=== PATIENT | female | born 1940 | race Caucasian/White ===

== ENCOUNTER 2018-02-27 10:18 | Day surgery (SDC) | payer MEDICARE ==
[~2018-02-27 10:18] MED LIST: LIDOCAINE 1% MDV 20ML VIAL SQ
[2018-02-27] MEDS: LR 1,000 ML IV (10:30)
[2018-02-27] MEDS ORDERED: dexameTHASONE 20 MG/5 ML VIAL (J1100) IV (10:30)
[2018-02-27] MEDS ORDERED: PROPOFOL 200 MG/20 ML VIAL As Ordered (12:25)
[2018-02-27] MEDS ORDERED: LIDOCAINE 2% INJ 100 MG/5 ML SDV (FOR ANES.) As Ordered (12:25)
[2018-02-27] MEDS ORDERED: ROCURONIUM BROMIDE 50 MG/5 ML VIAL As Ordered (12:25)
[2018-02-27] MEDS ORDERED: MIDAZOLAM INJ 2 MG/2 ML VIAL (J2250) As Ordered (12:26)
[2018-02-27] MEDS ORDERED: fentaNYL 250 MCG/5 ML INJECTION (J3010) As Ordered (12:26)
[2018-02-27] MEDS ORDERED: GLYCOPYRROLATE INJ 0.2 MG/ML 2 ML VIAL As Ordered (13:40)
[2018-02-27] MEDS ORDERED: ONDANSETRON 4MG/2ML VIAL (J2405) As Ordered (13:40)
[2018-02-27] MEDS ORDERED: NEOSTIGMINE 10 MG/10 ML VIAL (J2710) As Ordered (13:40)
[2018-02-27] MEDS ORDERED: KETOROLAC 60 MG/2 ML VIAL (J1885) As Ordered (13:40)
[2018-02-27] MEDS: EPINEPHrine 1MG/ML INJ 30ML MD-VIAL As Ordered (13:40)
[2018-02-27] MEDS ORDERED: dexameTHASONE 4 MG/ML 1ML VIAL (J1100) As Ordered ×2 (13:40)
[2018-02-27] MEDS: LIDOCAINE W/EPINEPHRINE 1% 20ML VIAL As Ordered (13:41)
[2018-02-27] MEDS: SODIUM CHLORIDE 0.9% NASAL GEL 15GM (AYR) As Ordered ×3 (13:41→13:44)
[2018-02-27] MEDS: METHYLENE BLUE 0.5% (5MG/ML) 10 ML AMP (PROVAYBLUE)(Q9968 PER 1MG) As Ordered (13:42)
[2018-02-27] MEDS ORDERED: LR 1,000 ML IV ×2 (14:45→15:00)
[2018-02-27] MEDS ORDERED: MEPERIDINE INJ 25 MG/ML VIAL (J2175) IV (15:00)
[2018-02-27] MEDS ORDERED: fentaNYL 100 MCG/2 ML INJECTION (J3010) IV (15:00)
[2018-02-27] MEDS ORDERED: ONDANSETRON 4MG/2ML VIAL (J2405) IV (15:00)
== END 2018-02-27 16:15 | disposition home or self-care (01) ==
LOC: M SDC 16:15
DX: J34.2 Deviated nasal septum (principal); J34.3 Hypertrophy of nasal turbinates; I10 Essential (primary) hypertension; E78.5 Hyperlipidemia, unspecified; R06.02 Shortness of breath; G35 Multiple sclerosis; Z87.891 Personal history of nicotine dependence; Z79.899 Other long term (current) drug therapy; R73.03 Prediabetes
CPT/HCPCS: 30520